=== PATIENT | male | born 1990 | race Two or more races ===

== ENCOUNTER 2018-05-23 22:22 | Emergency (ER) | payer SELFPAY ==
[~2018-05-23] VITALS: Ht 167.6 cm; Wt 68.4 kg
[2018-05-23] MEDS ORDERED: IBUPROFEN 800 MG TABLET PO STA (23:54)
[2018-05-23] MEDS ORDERED: IBUPROFEN 200 MG TABLET ONE (23:59)
[2018-05-24] MEDS ORDERED: CLINDAMYCIN 300 MG CAPSULE PO ONE
[2018-05-24] MEDS ORDERED: CLINDAMYCIN 300 MG CAPSULE ONE (00:03)
[2018-05-24] MEDS ORDERED: IBUPROFEN 800 MG TABLET ONE (00:03)
[2018-05-24] MEDS ORDERED: BACITRACIN ZINC OINT 500U/GM, 0.9 GM ONE (00:15)
[2018-05-24 00:18] VITALS: BP 124/74
== END 2018-05-24 00:20 | disposition home or self-care (01) ==
LOC: ED 23:59
DX: S91.101A Unspecified open wound of right great toe without damage to nail, initial encounter (principal); F17.210 Nicotine dependence, cigarettes, uncomplicated; F15.20 Other stimulant dependence, uncomplicated; F17.200 Nicotine dependence, unspecified, uncomplicated; L03.031 Cellulitis of right toe; Z59.0 Homelessness; W34.00XA Accidental discharge from unspecified firearms or gun, initial encounter; Y93.89 Activity, other specified; Y92.488 Other paved roadways as the place of occurrence of the external cause; Y99.8 Other external cause status
CPT/HCPCS: 99284